=== PATIENT | female | born 1995 | race Caucasian/White ===

== ENCOUNTER → 2020-12-03 14:44 | Outpatient (BNVA) | payer MEDICAID, SELFPAY | PROVIDERS: PCP Internal Medicine; Visit Provider Internal Medicine Endocrinology, Diabetes & Metabolism ==

== ENCOUNTER 2020-12-04 16:02 | Outpatient (REF) | payer MEDICAID, SELFPAY ==
[2020-12-04 18:23] LABS: Free T4 (Free Thyroxine) 0.88 ng/dL (0.71-1.85); Thyroid Stimulating Hormone 1.69 uIU/mL (0.32-4.0); Vitamin D 25-OH Total 18.2 ng/mL (>30)
== END 2020-12-04 16:03 | disposition home or self-care (01) ==
LOC: HO.LAB 16:02
PROVIDERS: PCP Internal Medicine; Visit Provider Internal Medicine Endocrinology, Diabetes & Metabolism
DX: E03.9 Hypothyroidism, unspecified (principal); E55.9 Vitamin D deficiency, unspecified
CPT/HCPCS: 36415; 82306; 84439; 84443

== ENCOUNTER 2021-03-21 18:00 | Outpatient (REF) | payer MEDICAID, SELFPAY ==
--- NOTE | ~2021-03-21 | MR_ITS ---
EXAMINATION: MR BRAIN WITHOUT AND WITH CONTRAST CLINICAL INFORMATION: Followup pineal cyst. COMPARISON: 09/01/2019 MRI TECHNIQUE: Multiplanar, multisequence MRI of the brain was obtained before and after the intravenous administration of 6.5 mL Gadavist. 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 No focal reduced diffusion is seen to suggest acute or subacute cerebral ischemia. The brain is otherwise normal in morphology and signal intensity, with no other mass lesions, abnormal enhancement, hemorrhage, hemosiderin staining, or abnormal mineral deposition. No extra-axial fluid collections. The ventricular system and subarachnoid spaces are otherwise within normal limits without hydrocephalus, stable in appearance. Normal signal voids are seen in the visualized major intracranial vessels. There is a 1.4 cm retention cyst in the left maxillary sinus, similar to prior exam. MR/MR head/brain wo/w con IMPRESSION: 1. 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 No further followup imaging suggested. 2. Otherwise unremarkable exam, unchanged.
== END 2021-03-21 18:01 | disposition home or self-care (01) ==
LOC: HO.MRI 18:00
PROVIDERS: Visit Provider Neurological Surgery
DX: E34.8 Other specified endocrine disorders (principal)
CPT/HCPCS: 70553; A9585